=== PATIENT | male | born 1950 | race Caucasian/White ===

== ENCOUNTER 2021-02-12 18:21 | Observation (INO) | payer MEDICARE, SELFPAY ==
--- NOTE | ~2021-02-12 | MR_ITS ---
EXAMINATION: MR brain/brain stem wo/w con DATE: 02/13/2021 11:43 INDICATION: Aphasia. TECHNIQUE: Magnetic resonance imaging (MRI) of the brain and brainstem was performed without and with 15 mL MultiHance intravenous contrast. Sequences included sagittal and axial T1-weighted FSE, axial diffusion-weighted FS EPI, axial T2*-weighted GRE, axial T2-weighted FLAIR Propeller, and axial T2-we ighted Propeller. Postcontrast sequences included axial, sagittal, and coronal T1-weighted FSE. Appar ent diffusion coefficient (ADC) maps were created. COMPARISON: Head CT 02/12/2021 FINDINGS: There is an old lacunar infarct in the left basal ganglia. There are scattered areas of non specific increased T2-weighted signal intensity in the cerebral white matter, which is within normal limits for the patient's age. There is no intracranial hemorrhage, acute infarction, or abnormal intr acranial mass lesion. The ventricles are normal in size. There is mild mucosal thickening in the para nasal sinuses. The orbits are normal. The mastoid air cells are normal. IMPRESSION: 1. Old lacunar infarct in the left basal ganglia. Reviewed, dictated and finalized at location A.
--- NOTE | ~2021-02-12 | XR_ITS ---
EXAMINATION: XR chest 1V INDICATION: Memory loss TECHNIQUE: Portable AP chest at 1855 hours COMPARISON: 10/30/2010 FINDINGS: Airspace opacity is present in the right lower lung zone. There is no pleural effusion or p neumothorax. The cardiomediastinal silhouette is normal. IMPRESSION: 1. Airspace opacity of the right lower lung zone which may be infectious or inflammatory. Recommend f ollowup radiographs in 10-14 days after appropriate therapy to evaluate for improvement/resolution. Reviewed, dictated and finalized at location A. IMPRESSION: 1. Airspace opacity of the right lower lung zone which may be infectious or inf lammatory. Recommend followup radiographs in 10-14 days after appropriate thera py to evaluate for improvement/resolution.
--- NOTE | ~2021-02-12 | CT_ITS ---
EXAMINATION: CT chest high resolution [facility] EXAM DATE: 02/13/2021 12:16 INDICATION: Abnormal chest x-ray, right lung opacity. TECHNIQUE: Spiral CT of the chest without contrast. HRCT. Axial, coronal and sagittal images of the chest were reviewed. Coronal maximum intensity pixel images of chest reviewed. The dose-length prod uct (DLP) for this examination was 196.85 mGy-cm. The exposure was tailored according to patient siz e (auto mA exposure control), and iterative reconstruction (ASIR) was used as additional dose reducti on technique. Correlation is made to x-ray 02/12/2021. FINDINGS: Scattered lung calcifications, granulomas. Small amount of bibasilar atelectasis. No suspi cious opacities. Mild emphysema. There are no pleural or pericardial effusions. Tracheobronchial t ree is patent. There is no mediastinal, hilar or axillary lymphadenopathy. There is no pneumothor ax. Heart normal in size. There is mild coronary arterial calcification, arterial sclerosis. Ther e is small to moderate sliding gastroesophageal hiatal hernia. Large right renal lesions, imaged por tions consistent with cysts. There is thoracic spondylosis without osteoblastic or osteolytic lesion s identified. IMPRESSION: 1. Subsegmental atelectasis and post infectious residua. 2. Mild emphysema. 3. Small to moderate hiatal hernia. Reviewed, dictated and finalized at location A.
--- NOTE | ~2021-02-12 | US_ITS ---
EXAMINATION: US carotid duplex BI DATE: 02/13/2021 12:14 INDICATION: Aphasia. TECHNIQUE: Grayscale, color Doppler, and pulsed Doppler images of the cervical carotid arteries were obtained. The degree of vessel stenosis is placed in one of the following categories: normal, <50%, 5 0-69%, >=70% but less than near-occlusion, near-occlusion, or total occlusion. Note that percent sten osis relative to normal distal artery lumen diameter is indirectly measured from velocity measurement s as described by Titi, et al. Radiology 2003; 229:340-346. COMPARISON: None. FINDINGS: RIGHT: The right common carotid artery (CCA) peak systolic velocity (PSV) is 78 cm/s. The right internal car otid artery (ICA) PSV is 87 cm/s. The right ICA end-diastolic velocity (EDV) is 33 cm/s. The right IC A/CCA PSV ratio is 1.1. Grayscale and color Doppler images yield an estimate of <50% diameter reducti on from plaque in the ICA. There is antegrade flow in the right vertebral artery. LEFT: The left CCA PSV is 52 cm/s. The left ICA PSV is 82 cm/s. The left ICA EDV is 31 cm/s. The left ICA/C CA PSV ratio is 1.6. Grayscale and color Doppler images yield an estimate of <50% diameter reduction from plaque in the ICA. There is antegrade flow in the left vertebral artery. IMPRESSION: 1. <50% stenosis in the right internal carotid artery. 2. <50% stenosis in the left internal carotid artery. Reviewed, dictated and finalized at location A.
--- NOTE | ~2021-02-12 | CT_ITS ---
EXAMINATION: CT brain wo con INDICATION: Memory loss, history of prostate cancer COMPARISON: None TECHNIQUE: Standard unenhanced head CT. The dose-length product (DLP) was 605.33 mGy-cm. The mA was a djusted according to patient size. Iterative reconstruction technique was employed. FINDINGS: There is no acute intraparenchymal hemorrhage. No evidence of mass lesion. No evidence of a cute infarction. There are old lacunar infarcts of the bilateral basal ganglia. There is mild periven tricular and subcortical hypodensity probably related to small vessel ischemic disease. There is mild prominence of the sulci and ventricles related to cerebral atrophy. Intracranial calcified cerebral atherosclerosis is noted. There are no extra-axial collections. There is no mass effect or midline sh ift. The orbits and soft tissues are unremarkable. The visualized sinuses and mastoid air cells are well aerated. IMPRESSION: 1. No acute intracranial abnormality. 2. Age related findings. Reviewed, dictated and finalized at location A.
[2021-02-12 18:28] VITALS: BP 117/84; PULSE 92; RESP 17; TEMP 37.3; O2SAT 99
--- NOTE | 2021-02-12 18:31 | ECG_ITS ---
Measurements Intervals Casey Rate: 91 P: 28 VA: 149 QRS: -14 QRSD: 94 T: 55 QT: 324 QTc: 400 Interpretive Statements SINUS RHYTHM VENTRICULAR PREMATURE COMPLEXES BASELINE ARTIFACT- I, II, III, AVR, AVL, AVF, V1-V4 BORDERLINE ECG Electronically Signed On 02-12-2021 20:02:41 CDT by Tima Schwartz D.O.
[2021-02-12 18:45] LABS: Basophils Absolute Auto 0.1 K/mm3 (0.0-0.1); Basophils Percent Auto 0.5 % (0.2-1.2); Hematocrit 46.2 % (42.0-52.0); Hemoglobin 15.9 g/dL (14.0-18.0); Immature Granulocyte Absolute 0.02 K/mm3 (0.00-0.031); Immature Granulocyte Percent A 0.2 % (0-0.5); Lymphocytes Percent Auto 16.5 % (18.3-44.2); Mean Corpuscular HGB Conc 34.4 g/dl (32-36); Mean Corpuscular Hemoglobin 30.8 pg (26-34); Mean Corpuscular Volume 89.5 fl (80-100); Mean Platelet Volume 9.4 fl (7.4-10.4); Monocytes Percent Auto 10.3 % (2.6-8.5); Neutrophils Percent Auto 72.5 % (45.5-73.1); Platelet Count Result 290 k/mm3 (150-375); Red Blood Count 5.16 M/mm3 (4.6-6.20); Red Cell Distribution Width 13.1 % (11.5-14.5); White Blood Count 9.7 K/mm3 (4.5-10.0)
[2021-02-12 18:54] LABS: Anion Gap 8 mmol/L (8-16); Blood Urea Nitrogen 24 mg/dL (9-20); Calcium 9.4 mg/dL (8.4-10.2); Carbon Dioxide 25 mmol/L (22-30); Chloride 100 mmol/L (98-107); Estimated Glomerular Filt Rate > 60; Glucose 109 mg/dL (75-110); Potassium 4.3 mmol/L (3.4-5.0); Sodium 133 mmol/L (137-145)
[2021-02-12 18:55] LABS: INR 1.1; Prothrombin Time 14.7 Seconds (11.1-14.7)
[2021-02-12 18:56] LABS: Partial Thromboplastin Time 31.8 SECONDS (22.3-36.8)
[2021-02-12 19:06] LABS: Troponin I < 0.012 ng/mL (0.000-0.034)
--- NOTE | 2021-02-12 19:15 | ED.GENADULT ---
HPI - General Adult General Chief complaint: Neuro Symptoms/Deficit Stated complaint: difficulty talking/ R/O stroke Time Seen by Provider: 02/12/21 18:42 Source: RN notes reviewed History of Present Illness HPI narrative: Patient presents emergency department from home for aphasia. Per the patient's the patient both of them had a episode of nausea vomiting diarrhea yesterday. States the patient said most of the day and this morning when she woke she noted that he was having difficulty at times finding the word to say or pick the wrong word states that this is continued throughout the day. Patient denies having any unilateral numbness or tingling they deny him having facial droop or slurred speech per the she believes he was normal yesterday but states he did sleep a lot patient denies any fevers or chills chest pain shortness of breath abdominal pain nausea vomiting or any other symptoms Related Data Allergies Allergy/AdvReac Type Severity Reaction Status Date / Time No Known Drug Allergies Allergy Verified 02/12/21 19:17 Review of Systems Review of Systems: Narrative: Gen.: Denies fevers or chills Eyes: Denies eye pain or visual change ENT: Denies congestion Respiratory: Denies shortness of breath or cough CV: Denies chest pain or palpitations GI: Denies abdominal pain nausea, emesis or diarrhea denies burning, urgency, frequency or hematuria Musculoskeletal: Denies back pain or muscle pain Neuro: See HPI Skin: Denies rash Except as documented, all other systems reviewed and negative [facility] Past Medical History Medical History (Updated 02/12/21 @ 20:40 by Chu Chiang DO) Prostate cancer Social History Social History (Updated 02/12/21 @ 19:16 by Chu Chiang DO) Smoking status: Never smoker Exam Narrative: Exam Narrative: APPEARANCE: No acute distress, nontoxic, resting in bed HEENT: Normocephalic, atraumatic, OMM, EYES: PERRL, EOMI NECK: Supple, nontender, full range of motion without pain, no meningismus RESPIRATORY: No respiratory distress, clear to auscultation bilaterally with no rhonchi wheezing or rales CARDIOVASCULAR: RRR s murmur ABDOMINAL: Soft, nontender, nondistended MUSCULOSKELETAL: Moves all extremities. No clubbing, cyanosis or edema. NEURO: A and O ?3, following commands, slurred speech mild aphasia cranial nerves II through XII grossly intact,muscle strength 5 out of 5 bilateral upper and lower extremities SKIN:: Warm, dry. Normal Color PSYCHIATRIC: Normal affect/mood Course Course Emergency Course: Discussed with Dr. Tee presentation work-up request MRI and carotid ultrasound be obtained in the a.m. agrees with aspirin and will follow as a edi consultant Reviewed patient's chest x-ray patient has had no fever and no cough white count within normal limits doubt pneumonia at this time Discussed with Dr. Meredith presentation work-up agrees with admission at this time Discussed with patient and family results of workup and diagnosis. Discussed need for admission. Patient and family understand and agree to current treatment plan Vital Signs Vital signs: Vital Signs Temperature 99.1 F 02/12/21 18:28 Pulse Rate 92 02/12/21 18:28 Respiratory Rate 17 02/12/21 18:28 Blood Pressure 117/84 02/12/21 18:28 Pulse Oximetry 99 02/12/21 18:28 Temperature 99.1 F 02/12/21 18:28 Pulse Rate 92 02/12/21 18:28 Respiratory Rate 17 02/12/21 18:28 Blood Pressure 117/84 02/12/21 18:28 Pulse Oximetry 99 02/12/21 18:28 Medical Decision Making Vital Signs Vital Signs: Vital Signs Temperature 99.1 F 02/12/21 18:28 Pulse Rate 92 02/12/21 18:28 Respiratory Rate 17 02/12/21 18:28 Blood Pressure 117/84 02/12/21 18:28 Pulse Oximetry 99 02/12/21 18:28 Temperature 99.1 F 02/12/21 18:28 Pulse Rate 92 02/12/21 18:28 Respiratory Rate 17 02/12/21 18:28 Blood Pressure 117/84 02/12/21 18:28 Pulse Oximetry 99 02/12/21 18:28
[2021-02-12 19:27] LABS: Alanine Aminotransferase 18 U/L (4-50); Albumin Level 4.5 g/dL (3.5-5.1); Alkaline Phosphatase 59 U/L (38-126); Aspartate Amino Transferase 31 U/L (17-59); Bilirubin,Total 0.8 mg/dL (0.2-1.3); Lipase 38 U/L (23-300)
[2021-02-12 19:33] LABS: Add Urine Microscopic? YES; Appearance Urine Clear (Clear); Bilirubin Urine Negative (Negative); Blood Urine Negative (Negative); Color Urine Amber (Yellow); Glucose Urine UA Negative (Negative); Ketones Urine 1+ mg/dL (Negative); Leukocyte Esterase Ur Negative LEU/UL (Negative); Mucus Urine Heavy /lpf; Nitrate Urine Negative (Negative); Protein Urine 2+ mg/dL (Negative); RBC Urine 0-2 /hpf (0-2); Squamous Epithelial Cell Urine Rare /hpf (Few); WBC Urine 0-3 /hpf
[2021-02-12] MEDS: SODIUM CHLORIDE 0.9% IV 1,000 ML 999 ML IV CONT ×2 (19:33→19:34)
[2021-02-12 19:36] LABS: Specific Grav Ur 1.033 (1.001-1.035)
--- NOTE | 2021-02-12 19:55 | PC.NURSE ---
Per ERP PT. is only to receive one liter of fluids. RN stopped second liter of fluids.
[2021-02-12] MEDS: ASPIRIN 81 MG CHEWABLE TABLET 324 MG PO (20:47)
--- NOTE | 2021-02-12 21:39 | ADMGEN ---
This patient, Anthony Peguero, was admitted to Medical Room 241-. Patient/family oriented to hospital policies and general routines including ID bracelet, bed and alarms, visiting hours, pain management, procedures, bathroom and other care routines, personal items, smoking policy, room service/diet, and visiting hours. Information on how to activate the Rapid Response Team has been discussed. Patient/Family are encouraged to report perceived risks to care and to ask questions if they do not understand what they are told or what they should do.
[2021-02-12 21:42] VITALS: BP 137/77; PULSE 80; RESP 16; TEMP 37.1; O2SAT 95
[2021-02-12 21:43] VITALS: BMI 27.4
[2021-02-12 23:53] LABS: Troponin I < 0.012 ng/mL (0.000-0.034)
[2021-02-13] VITALS: PULSE 73
--- NOTE | 2021-02-13 | ECHO_ITS ---
Patient Info Name: Anthony Peguero Age: 71 years : 1950 Gender: Male Ht: 70 in Wt: 191 lbs BSA: 2.08 m2 HR: 71 bpm BP: 140 / 83 mmHg Heart Rhythm: Sinus Rhythm Technical Quality: Good Exam Date: 02/13/2021 10:41 AM Exam Location: [facility] Pulmonary Exam Room: 241 Patient Status: Inpatient Admit Date: 02/12/2021 Staff Ordering Physician: Kye Meredith MD Industrial Design Intern: Deirdre Mendez RDCS Attending Provider: Kye Meredith MD Exam Type: CA echo doppler color flow Study Info Indications - stroke like symptoms cva /tia Complete two-dimensional, color flow and Doppler transthoracic echocardiogram is performed with agitated saline. Contrast/Agitated Saline Contrast/Ag. Saline: Agitated Saline Amount: 20.00 ml Administered By: Phyllis House RN Existing IV Access: Yes IV Access Condition: patent with no signs of infiltration Summary 1. Left ventricular systolic function is normal, estimated at 65-70%. 2. No evidence of interatrial shunt with injection of agitated saline with or without Valsalva. 3. Left ventricular chamber dimension is normal. 4. There is mildly increased left ventricular wall thickness. 5. The left ventricular diastolic function is grade I diastolic dysfunction. 6. Right atrial chamber dimension is mildly enlarged. Left Ventricle Left ventricular systolic function is normal, estimated at 65-70%. Left ventricular chamber dimension is normal. There is mildly increased left ventricular wall thickness. The left ventricular diastolic function is grade I diastolic dysfunction. Right Ventricle Right ventricular chamber dimension is normal. Right ventricular systolic function is normal. Left Atria Left atrial chamber dimension is normal. Right Atria Right atrial chamber dimension is mildly enlarged. Atrial Septum No evidence of interatrial shunt with injection of agitated saline with or without Valsalva. Aortic Valve The aortic valve is trileaflet. There is no aortic valve stenosis. There is mild aortic valve regurgitation. There is mild aortic valve calcification. Pulmonic Valve The pulmonic valve is normal. There is mild pulmonic regurgitation. Mitral Valve The mitral valve has thickened leaflets. There is trace mitral valve regurgitation. The mitral valve annulus is mildly calcified. Tricuspid Valve The tricuspid valve leaflets are normal. There is trace tricuspid valve regurgitation. No pulmonary hypertension, estimated pulmonary arterial systolic pressure is 24 mmHg. Pericardium/Pleural The pericardium appears normal. There is trivial pericardial effusion. Inferior Vena Cava Normal inferior vena cava with >50% collapse upon inspiration consistent with normal right atrial pressure, 5 mmHg. Aorta The aortic root size at the sinus of Valsalva is normal. There is mild-moderate aortic atherosclerosis. Left Ventricular Outflow Tract Name Value Normal LVOT 2D LVOT Diameter 2.0 cm LVOT Doppler LVOT Peak Gradient 6 mmHg LVOT Mean Gradient
--- NOTE | 2021-02-13 01:40 | PM.IMHP ---
H&P: HPI History of Present Illness Date/Time: 02/13/21 01:40 Chief Complaint: speech difficulty Narrative: Patient presents emergency department from home for aphasia. The patient reports latelyn since past few days to be exact, he has been having difficulty with words and difficulty with memory. memory he thiinks has been an issues for some time now but has goten worsen. He reports the memory issue has been the same, and has nto gotten worse or any better since he has been here. he reports that he otherwise did not have any visual problems, weakness or arms or legs. he reports that recently, he was having some flu like illnesss. he also had some nausea, with no vomiting and has not been eating as much lately. he reports low grade temperature recently. he had also seen Dr. Gregg fierro for his prostate and had complained about his urine having burning sensation. he was given bactrim for a 10 days course, he only took it for 3 days and since nauseeated he has not taken then. he reports that he had prostate cancer and had prsotatectomy done. he was being followed by psa level and more recently his psa level had bumped up to 15, o fnote, it never went to zero from [facility] prostatectomy. he i splanned to have some treamtent for this but has not started yet. Review of Systems Review of Systems: Narrative: - CONSTITUTIONAL: Denies weight loss, reports some fever and chills. - HEENT: Denies changes in vision and hearing - RESPIRATORY: Denies SOB and cough. - CV: Denies palpitations and CP. - GI: Denies abdominal pain, nausea, vomiting and diarrhea. - : Denies dysuria and urinary frequency. - MSK: Denies myalgia and joint pain. - SKIN: Denies rash and pruritus. - NEUROLOGICAL: Denies headache and syncope. - PSYCHIATRIC: Denies recent changes in mood. Denies anxiety and depression. All systems reviewed & are unremarkable except as noted in HPI and below PMFSH Past Medical History Medical History (Updated 02/13/21 @ 02:50 by Kye Meredith MD) Prostate cancer Social History Social History (Updated 02/12/21 @ 19:16 by Chu Chiang DO) Smoking status: Never smoker Alcohol intake: current Drinks per week: 3 Substance use: never Substance use type: does not use Spiritual care concerns: No Meds Home Medications and Allergies Home Medications Medication Instructions Recorded Confirmed Type amlodipine 5 mg PO DAILY 02/12/21 02/12/21 History levothyroxine 50 mcg PO DAILY 02/12/21 02/12/21 History omeprazole 20 mg PO DAILY 02/12/21 02/12/21 History simvastatin 10 mg PO DAILY 02/12/21 02/12/21 History sulfamethoxazole-trimethoprim 800 tablet PO BID 02/12/21 02/12/21 History Allergies Allergy/AdvReac Type Severity Reaction Status Date / Time No Known Drug Allergies Allergy Verified 02/12/21 19:17 Vital Signs Vital Signs - 24 hr 02/12/21 18:28 02/12/21 21:42 02/13/21 00:00 Temperature 99.1 F 98.7 F Pulse Rate 92 80 73 Respiratory Rate 17 16 Blood Pressure 117/84 137/77 Pulse Oximetry 99 95 Exam Narrative: Exam Narrative: GENERAL: The patient is well developed, not in acute distress HEENT: Nonicteric sclerae, PERRLA, EOMI. Oropharynx clear. Moist mucous membranes. Conjunctivae appear well perfused. CHEST: Chest wall is nontender. HEART: Regular rate and rhythm without murmur, rubs, or gallops LUNGS: Clear to auscultation bilaterally. no respiratory distress ABDOMEN: Soft, positive bowel sounds, non-tender, no organomegaly. SKIN: No rash, no excessive bruising, petechiae, or purpura. NEUROLOGIC: Cranial nerves II-XII intact, alert and oriented x 3, no gross motor deficits, intermittent expressive aphasia noted on examination otherwise speech clear and comprehensible EXTREMITIES: no edema, cyanosis or clubbing H&P: Results Labs Labs: Short CBC 02/12/21 Range/Units 18:33 WBC 9.7 (4.5-10.0) K/mm3 Hgb 15.9 (14.0-18.0) g/dL Hct 46.2 (42.0-52.0) % Plt Count
[2021-02-13 02:45] LABS: Troponin I < 0.012 ng/mL (0.000-0.034)
[2021-02-13 04:00] VITALS: PULSE 73
[2021-02-13 05:21] VITALS: BP 140/83; PULSE 71; RESP 18; TEMP 36.6; O2SAT 98
[2021-02-13] MEDS: LEVOTHYROXINE SODIUM 50 MCG TABLET PO (05:33)
[2021-02-13] MEDS: ASPIRIN 81 MG ENTERIC TABLET PO (05:34)
[2021-02-13 05:41] LABS: Basophils Absolute Auto 0.1 K/mm3 (0.0-0.1); Basophils Percent Auto 0.6 % (0.2-1.2); Eosinophils Percent Auto 0.1 % (0-4.4); Hematocrit 42.5 % (42.0-52.0); Hemoglobin 14.7 g/dL (14.0-18.0); Immature Granulocyte Absolute 0.03 K/mm3 (0.00-0.031); Immature Granulocyte Percent A 0.3 % (0-0.5); Lymphocytes Absolute Auto 2.08 K/mm3 (0.9-3.2); Lymphocytes Percent Auto 22.3 % (18.3-44.2); Mean Corpuscular HGB Conc 34.6 g/dl (32-36); Mean Corpuscular Hemoglobin 30.8 pg (26-34); Mean Corpuscular Volume 89.1 fl (80-100); Mean Platelet Volume 9.5 fl (7.4-10.4); Monocytes Absolute Auto 1.1 K/mm3 (0.1-0.6); Monocytes Percent Auto 11.8 % (2.6-8.5); Neutrophils Percent Auto 64.9 % (45.5-73.1); Platelet Count Result 245 k/mm3 (150-375); Red Blood Count 4.77 M/mm3 (4.6-6.20); White Blood Count 9.3 K/mm3 (4.5-10.0)
[2021-02-13 05:59] LABS: Anion Gap 6 mmol/L (8-16); Blood Urea Nitrogen 20 mg/dL (9-20); Calcium 8.7 mg/dL (8.4-10.2); Carbon Dioxide 23 mmol/L (22-30); Chloride 103 mmol/L (98-107); Cholesterol 158 mg/dL (0-200); Estimated CRCL calculation 69 ml/min; Estimated Glomerular Filt Rate > 60; Glucose 103 mg/dL (75-110); HDL Direct 43 mg/dL; Potassium 3.9 mmol/L (3.4-5.0); Sodium 132 mmol/L (137-145); Triglycerides 83 mg/dL (<150)
[2021-02-13 06:04] LABS: LDL Cholesterol Direct 93 mg/dL
[2021-02-13 08:00] VITALS: PULSE 69
--- NOTE | 2021-02-13 10:34 | WPDNEURCNPN ---
Assessment and Plan Assessment and plan (1) Aphasia: Code(s): R47.01 - Aphasia Status: Acute (2) Memory dysfunction: Code(s): R41.3 - Other amnesia Status: Acute Additional Plan admitted with speech difficulties in addition to the concerns about memory evaluation is being carried out further recommendation made accordingly at present patient is going through the echocardiogram Consult date: 02/13/21 Time Seen: 10:30 HPI: Anthony Peguero is a 71 year old male Admitted to the hospital for the complaints of dysphagia of several days duration along with the 5 memory dysfunction which she has been experiencing for a while he gave no history or of associated visual difficulties weakness and numbness of 1 side or other side in upper and lower extremities. Is being followed by Dr. cruz for his prostatic dysfunction and has been taking Bactrim the last the last 3 days and unfortunately he became nauseated and he stopped the medication. Undergone prostatic cancer treatment including prostatectomy and being followed by a PSA level most recent level was 15. By history he is a never smoker drinks 3 drinks per week never substance abuser evaluation up until now include the routine CBC which is normal, routine chemistry which is also again normal except borderline sodium of 132 and UA is a 2+ protein urea no leukocyte CT scan has been done which is negative [facility] Past Medical History Medical History Prostate cancer Social History Social History Smoking status: Never smoker Alcohol intake: current Drinks per week: 3 Substance use: never Substance use type: does not use Spiritual care concerns: No Meds Home Medications and Allergies Home Medications Medication Instructions Recorded Confirmed Type amlodipine 5 mg PO DAILY 02/12/21 02/12/21 History levothyroxine 50 mcg PO DAILY 02/12/21 02/12/21 History omeprazole 20 mg PO DAILY 02/12/21 02/12/21 History simvastatin 10 mg PO DAILY 02/12/21 02/12/21 History sulfamethoxazole-trimethoprim 800 tablet PO BID 02/12/21 02/12/21 History Allergies Allergy/AdvReac Type Severity Reaction Status Date / Time No Known Drug Allergies Allergy Verified 02/12/21 19:17 Vital Signs Vital Signs - 24 hr 02/12/21 18:28 02/12/21 21:42 02/13/21 00:00 Temperature 37.3 C 37.1 C Pulse Rate 92 80 73 Respiratory Rate 17 16 Blood Pressure 117/84 137/77 Pulse Oximetry 99 95 02/13/21 04:00 02/13/21 05:21 Temperature 36.6 C Pulse Rate 73 71 Respiratory Rate 18 Blood Pressure 140/83 Pulse Oximetry 98 Exam Const: General: cooperative, comfortable, no acute distress, alert and awake Nutritional Appearance: average body habitus and well nourished Orientation/consciousness: oriented to person, oriented to place and oriented to time Limitations: no limitations HENMT: Head: normal to inspection Ears: hearing grossly normal bilaterally General nose exam: Normal external nose present Face and sinus: normal facial exam Mouth: Yes Normal oral and palatal mucosa present Eyes: General: appearance normal, both eyes and all related structures Visual Sultana: normal visual sultana by confrontation Alignment and Position: alignment normal Periorbital: periorbital findings normal Eyelids: eyelids normal Conjunctivae: conjunctivae normal Sclera: sclerae normal Cornea: corneas normal Pupils: Equal, round and reactive pupils present Neck: Neck: full ROM Resp: Effort & Inspection: able to speak in complete sentences Auscultation: clear to auscultation bilaterally Cardio: Rate: regular rate Rhythm: regular rhythm Skin: General skin exam: no rashes or lesions noted Neuro: General: oriented to person, oriented to place, oriented to time, patient oriented x3 and moves all extremities Cranial nerves: Yes CN's II-XII intact bilaterally Cognition (Neuro):
[2021-02-13] MEDS: SIMVASTATIN 10 MG TABLET PO (12:19)
[2021-02-13] MEDS: amLODIPine BESYLATE 5 MG TABLET PO (12:19)
[2021-02-13] MEDS: ENOXAPARIN 40 MG/0.4 ML SYRINGE SUB-Q (12:19)
[2021-02-13] MEDS: PANTOPRAZOLE 40 MG TABLET PO (12:19)
[2021-02-13 14:00] VITALS: BP 130/77; PULSE 69; RESP 18; TEMP 37.2; O2SAT 99
--- NOTE | 2021-02-13 14:56 | PM.DS ---
DS: Admitting Diagnosis Admitting Diagnosis Admitting Diagnosis: Aphasia DS: Discharge Diagnosis Discharge Diagnosis (1) Aphasia: Code(s): R47.01 - Aphasia Status: Acute Assessment and Plan: Patient reports slurred speech and issues with memory or placing words together in a sentence Brain MRI shows old infart Carotid Dopplers: >50% stenosed bilaterally 81mg aspirin Plavix for 4 weeks Diet advance as tolerated. (2) Prostate cancer: Code(s): C61 - Malignant neoplasm of prostate Status: Acute (3) Lesion of right lung: Code(s): R91.1 - Solitary pulmonary nodule Status: Acute (4) H/O prostatectomy: Code(s): Z90.79 - Acquired absence of other genital organ(s) Status: Acute Assessment and Plan: Follow instructions per Dr. Escobedo (5) Hypertension: Qualifiers: Hypertension type: essential hypertension Qualified Code(s): I10 - Essential (primary) hypertension Code(s): I10 - Essential (primary) hypertension Status: Acute Assessment and Plan: Blood pressure 140/83 Continue Home amlodipine 5mg PO daily (6) Hyperlipidemia: Qualifiers: Hyperlipidemia type: mixed hyperlipidemia Qualified Code(s): E78.2 - Mixed hyperlipidemia Code(s): E78.5 - Hyperlipidemia, unspecified Status: Acute Assessment and Plan: Change the simvastatin 10mg PO daily to atorvastatin 40mg PO daily (7) Hypothyroidism: Qualifiers: Hypothyroidism type: acquired Qualified Code(s): E03.9 - Hypothyroidism, unspecified Code(s): E03.9 - Hypothyroidism, unspecified Status: Acute Assessment and Plan: Levothyroxine 50mcg Po daily DS: Summary Hospital Course Hospital Course: patient's 71-year-old male with a past medical history of hypertension, hyperlipidemia, and prostate cancer with a prostatectomy who presented to the ED with complaints of aphasia, slurred speech, and memory loss. Patient is able to talk in full sentences and states that he is feeling 100% better. Patient had carotid ultrasound, brain MRI which were both resulted in negative. The patient denies chest pain, shortness of breath, abdominal pain, nausea, vomiting, numbness and tingling, diarrhea, constipation, and headache. Explained to patient about the addition of Plavix to his med regimen and changing his simvastatin to atorvastatin patient agreed and verbalized understanding of plan of care all questions were answered Status at Discharge Functional status at discharge: independent ambulation Overall status at discharge: patient is back to baseline Time Spent with Patient Time attestation: Total time spent providing and/or coordinating discharge services: Results review, chart review, and patient conversation Time spent: Greater than 30 minutes Exam Const: General: comfortable and no acute distress Limitations: no limitations HENMT: Ears: TM's normal bilaterally Eyes: General: appearance normal, both eyes and all related structures Pupils: Equal, round and reactive pupils present EOM: EOMs intact bilaterally Neck: Neck: supple and no JVD Thyroid: thyroid normal Resp: Effort & Inspection: normal respiratory effort Auscultation: clear to auscultation bilaterally Cardio: Rate: regular rate Rhythm: regular rhythm GI: Inspection: non-distended GI Palp: Yes Soft to palpation and No Tenderness to palpation present (GI) Percussion: Yes normal to percussion Auscultation: normal bowel sounds Skin: General skin exam: normal color and no rashes or lesions noted Neuro: General: gait normal Motor exam (neuro): 5/5 motor strength present throughout and Normal motor muscle tone present throughout Sensory Exam: normal sensation Extrem: General: normal to inspection and normal exam except as noted Right upper extremity: normal to inspection, full ROM and normal capillary refill Le
[2021-02-13 15:58] VITALS: O2SAT 97
== END 2021-02-13 16:05 | disposition home or self-care (01) ==
LOC: ANHED 20:40 → ANH2MED 02-13 00:44
PROVIDERS: Psychiatry & Neurology Neurology; Admitting Provider Internal Medicine; Emergency Provider Emergency Medicine; Visit Provider Nurse Practitioner
DX: R47.01 Aphasia (principal); R41.3 Other amnesia; R91.1 Solitary pulmonary nodule; I65.23 Occlusion and stenosis of bilateral carotid arteries; R97.21 Rising PSA following treatment for malignant neoplasm of prostate; I10 Essential (primary) hypertension; E78.5 Hyperlipidemia, unspecified; E03.9 Hypothyroidism, unspecified; Z85.46 Personal history of malignant neoplasm of prostate; Z90.79 Acquired absence of other genital organ(s)
CPT/HCPCS: 36415; 70450; 70553; 71045; 71250; 80048; 80061; 80076; 81001; 82607; 83690; 84443; 84484; 85025; 85610; 85730; 93005; 93306; 93880; 96360; 96372; 96375; 99285; A9270; A9577; G0378; J1650; J7030

== ENCOUNTER 2022-04-03 16:24 | Outpatient (CLI) | payer MEDICARE, SELFPAY ==
--- NOTE | ~2022-04-03 | MR_ITS ---
EXAMINATION: MR cervical spine wo/w con DATE: 04/03/2022 17:30 INDICATION: Protrude cervical disc presenting with several months of neck pain and some numbness in t he hands. TECHNIQUE: Magnetic resonance imaging (MRI) of the cervical spine was performed without and with fall patellar delayed start abdominal abnormality or strictures demonstrated. Parkinson's and fissuring a nd heterogeneous decreased, LAST OR DICTATION mL Multihance intravenous contrast. Sequences included sagittal T2-weighted FSE, sagittal T2-weighted FS FSE, sagittal T1-weighted FSE, axial MERGE and axia l T2-weighted FSE. COMPARISON: None FINDINGS: 1 mm anterolisthesis C7 on T1. 2 mm anterolisthesis of T1 on T2. Vertebral body heights are normal. Bone marrow signal intensity is normal. Moderate disc height loss at C6-C7 and mild disc height loss at C5-C6. Cord signal intensity is normal. No abnormally enhancing lesions identified. The following disc levels are specifically discussed: C2-C3: The disc does not extend beyond the endplate margin. There is no uncovertebral joint osteoarth ritis. There is mild left and severe right facet joint osteoarthritis. There is mild to moderate righ t neural foraminal stenosis. There is no central canal stenosis. C3-C4: Disc is mildly bulging. There is multiple right and moderate left uncovertebral joint osteoart hritis. There is mild right and severe left facet joint osteoarthritis. There is mild right and moder ate left neural foraminal stenosis. There is mild central canal stenosis with mild indention of the v entral surface of the cord. C4-C5: Disc is mildly bulging. There is mild right and moderate left uncovertebral joint osteoarthrit is. There is mild to moderate right and severe left facet joint osteoarthritis. There is mild right a nd moderate left neural foraminal stenosis. There is mild central canal stenosis. C5-C6: Disc is bulging. There is moderate bilateral uncovertebral joint osteoarthritis. There is mode rate left and moderate to severe right facet joint osteoarthritis. There is mild left and moderate ri ght neural foraminal stenosis. There is mild central canal stenosis with mild indentation of the vent ral surface of the cord. C6-C7: Disc is bulging. There is moderate right and severe left uncovertebral joint osteoarthritis. T here is mild right and moderate left facet joint osteoarthritis. There is moderate left and mild to m oderate right neural foraminal stenosis. There is mild central canal stenosis with mild indentation o f the ventral surface of the cord. C7-T1: The disc does not extend beyond the more posterior T1 endplate margin. There is mild bilateral uncovertebral joint osteoarthritis. There is mild to moderate right and severe left facet joint oste oarthritis. There is mild left neural foraminal stenosis. There is no central canal stenosis. T1-T2: The disc does not extend beyond the more posterior endplate margin of T2. There is moderate ri ght and severe left facet osteoarthritis. There is mild bilateral neural foraminal stenosis. There is no central canal stenosis. IMPRESSION: 1. Moderate cervical spondylosis. Reviewed, dictated and finalized at location A.
[2022-04-03 17:11] LABS: Estimated Glomerular Filt Rate > 60
== END 2022-04-03 16:25 | disposition home or self-care (01) ==
PROVIDERS: PCP Internal Medicine; Visit Provider Psychiatry & Neurology Neurology
DX: M50.20 Other cervical disc displacement, unspecified cervical region (principal); M47.812 Spondylosis without myelopathy or radiculopathy, cervical region
CPT/HCPCS: 72156; A9577

== ENCOUNTER 2022-06-19 13:24 | Emergency (ER) | payer MEDICARE, SELFPAY ==
--- NOTE | ~2022-06-19 | US_ITS ---
US venous doppler LE RT DATE: 06/19/2022 14:37 INDICATION: Right calf pain TECHNIQUE: Real-time and color flow imaging and Doppler analysis of the veins of the right lower extr emity COMPARISON: None FINDINGS: The right greater saphenous vein is patent. There is spontaneous and phasic flow and normal augmentation and color flow signal and normal compression of the deep veins of the right lower extre mity. IMPRESSION: No evidence of deep venous thrombosis of right leg Reviewed, dictated and finalized at [facility]. Reviewed, dictated and finalized at location B.
[2022-06-19 14:18] VITALS: BP 161/86; PULSE 75; RESP 12; TEMP 36.4; O2SAT 98
--- NOTE | 2022-06-19 15:46 | ED.GENADULT ---
HPI - General Adult General Chief complaint: Extremity Problem,Nontraumatic Stated complaint: right calf pain Time Seen by Provider: 06/19/22 15:08 History of Present Illness HPI narrative: Patient is a 72-year-old male who presents ER with right calf pain. No known injury but notes its been worse after he has a day of labor. No swelling. No chest pain or shortness of breath or hemoptysis. No history of DVT. Related Data Home Medications Medication Instructions Recorded Confirmed cholecalciferol (vitamin D3) 25 25 mcg PO DAILY 03/26/22 mcg (1,000 unit) capsule omega 2-otz-zdt-fish oil 60 mg-90 1 cap PO BID 03/26/22 mg-500 mg capsule (Fish Oil) Allergies Allergy/AdvReac Type Severity Reaction Status Date / Time No Known Drug Allergies Allergy Unknown Verified 05/07/22 14:04 Review of Systems Review of Systems: All systems reviewed & are unremarkable except as noted in HPI and below Constitutional: Constitutional: Denies chills and Denies fever(s) Cardiovascular: Cardiovascular: Denies chest pain, Denies rapid heart rate and Denies radiating jaw, neck or arm pain Respiratory: Respiratory: Denies cough and Denies dyspnea Musculoskeletal: Comments: Right calf pain PMFSH Past Medical History Medical History Blurred vision Headache Prostate cancer Surgical History Surgical History H/O cataract extraction Social History Social History Smoking status: Never smoker Alcohol intake: current Drinks per week: 3 Substance use: never Substance use type: does not use Spiritual care concerns: No Exam Narrative: GENERAL: Well-appearing, well-nourished, and in no acute distress. HEAD: Normocephalic, atraumatic. EXTREMITIES: Normal range of motion. No edema. Mild point tenderness to the mid posterior aspect of the right calf. No bruising or redness. SKIN: Warm, dry, no rash. NEURO: Alert and oriented x3. PSYCH: Normal mood and affect. Course Course Emergency Course: Patient informed of results. He will take home Aleve twice a day for the next week. Recommend follow-up with PCP. Vital Signs Vital signs: Vital Signs Temperature 97.6 F 06/19/22 14:18 Pulse Rate 75 06/19/22 14:18 Respiratory Rate 12 06/19/22 14:18 Blood Pressure 161/86 H 06/19/22 14:18 Pulse Oximetry 98 06/19/22 14:18 Oxygen Delivery Room Air 06/19/22 14:18 Temperature 97.6 F 06/19/22 14:18 Pulse Rate 75 06/19/22 14:18 Respiratory Rate 12 06/19/22 14:18 Blood Pressure 161/86 H 06/19/22 14:18 Pulse Oximetry 98 06/19/22 14:18 Oxygen Delivery Room Air 06/19/22 14:18 Medical Decision Making Vital Signs Vital Signs: Vital Signs Temperature 97.6 F 06/19/22 14:18 Pulse Rate 75 06/19/22 14:18 Respiratory Rate 12 06/19/22 14:18 Blood Pressure 161/86 H 06/19/22 14:18 Pulse Oximetry 98 06/19/22 14:18 Oxygen Delivery Room Air 06/19/22 14:18 Temperature 97.6 F 06/19/22 14:18 Pulse Rate 75 06/19/22 14:18 Respiratory Rate 12 06/19/22 14:18 Blood Pressure 161/86 H 06/19/22 14:18 Pulse Oximetry 98 06/19/22 14:18 Oxygen Delivery Room Air 06/19/22 14:18 Imaging Data Radiologist's impression: ITS Impressions Venous Doppler Study 06/19/22 14:42 IMPRESSION: No evidence of deep venous thrombosis of right leg Discharge Plan Discharge Clinical Impression: Strain of calf muscle Patient Disposition: Home, Self-Care Condition: Stable Instructions: Muscle Strain (ED) Additional Instructions: Return the ER if you have chest pain or shortness of breath, you lose consciousness, you cannot keep down food or water, you have additional concerns. Prescriptions: No Action omega 4-pvv-dyz-fish oil [Fish Oil] 60-90-500 mg capsule 1 cap PO BID choleca
== END 2022-06-19 15:57 | disposition home or self-care (01) ==
PROVIDERS: Emergency Provider Emergency Medicine; PCP Physician Assistant Medical
DX: S86.911A Strain of unspecified muscle(s) and tendon(s) at lower leg level, right leg, initial encounter (principal); Z85.46 Personal history of malignant neoplasm of prostate; Z98.49 Cataract extraction status, unspecified eye; X58.XXXA Exposure to other specified factors, initial encounter
CPT/HCPCS: 93971; 99284

== ENCOUNTER 2022-10-04 09:46 | Emergency (ER) | payer MEDICARE, SELFPAY ==
--- NOTE | ~2022-10-04 | XR_ITS ---
XR knee RT 3V 10/04/2022 10:29 Indication: Swelling and anterior knee pain. Procedure: 3 views of the right knee Comparison: No prior studies for comparison. Findings: There is mild patellofemoral compartment osteoarthritis. There is a moderate joint effusion . No acute fracture or traumatic malalignment. No foreign bodies. Impression: 1: Moderate joint effusion. Reviewed, dictated and finalized at location A. ING OFFICER Impression: 1: Moderate joint effusion.
[2022-10-04 09:50] VITALS: BP 146/98; PULSE 79; RESP 18; TEMP 36.7; O2SAT 99
--- NOTE | 2022-10-04 10:09 | ED.EXTPRO ---
HPI - Extremity Problem General Chief complaint: Extremity Problem,Nontraumatic Stated complaint: R knee pain Time Seen by Provider: 10/04/22 09:57 History of Present Illness HPI Narrative: Patient is a 72-year-old healthy male here for evaluation of right knee pain and swelling over the past day. Patient states yesterday he was working out in his yard and garden all day on his knees. He started to notice some pain and swelling in his right superior knee as the day went on. He attempted Tylenol with transient relief of his symptoms states that the pain got worse and he was having trouble bearing weight on the leg. Swelling has gone down today after taking a shower and using compression. Denies numbness, tingling or weakness in the leg. Related Data Home Medications Medication Instructions Recorded Confirmed cholecalciferol (vitamin D3) 25 25 mcg PO DAILY 03/26/22 mcg (1,000 unit) capsule omega 3-loq-vfm-fish oil 60 mg-90 1 cap PO BID 03/26/22 mg-500 mg capsule (Fish Oil) Allergies Allergy/AdvReac Type Severity Reaction Status Date / Time No Known Drug Allergies Allergy Unknown Verified 05/07/22 14:04 Review of Systems Review of Systems: Gen.: Denies fevers or chills Eyes: Denies eye pain or visual change ENT: Denies congestion Respiratory: Denies shortness of breath or cough CV: Denies chest pain or palpitations GI: Denies abdominal pain nausea, emesis or diarrhea denies burning, urgency, frequency or hematuria Musculoskeletal: Reports right knee pain and swelling. Denies back pain or muscle pain Neuro: Denies numbness, tingling, weakness or focal weakness Skin: Denies rash Except as documented, all other systems reviewed and negative [facility] Past Medical History Medical History Blurred vision Headache Prostate cancer Surgical History Surgical History H/O cataract extraction Social History Social History Smoking status: Never smoker Alcohol intake: current Drinks per week: 3 Substance use: never Substance use type: does not use Spiritual care concerns: No Exam Narrative: APPEARANCE: Well appearing, no pain in distress, well-nourished. Head: Normocephalic and atraumatic. EYES: PERRLA/EOMI, conjunctivae clear NOSE: No nasal drainage EARS: External ear normal in appearance THROAT: Oropharynx is clear. Mucous membranes are moist. NECK: Supple. No adenopathy, no masses. RESPIRATORY: Airway patent, respirations nonlabored. Clear to auscultation bilaterally, no rales, rhonchi, wheezing. CARDIOVASCULAR: 2+ DP and PT pulses bilaterally. Regular rate and rhythm without murmurs, rubs, or gallops. ABDOMINAL: Normoactive bowel sounds. Soft, nontender, nondistended. No rebound tenderness or guarding. MUSCULOSKELETAL: Right knee has palpable ballottement to the superior aspect, no warmth or overlying redness. Patient is able to actively flex the knee to about 20 degrees before he starts to have pain. No tenderness to palpation along insertion of quadriceps. NEURO: Normal speech. No focal neurologic deficits. SKIN: Skin is warm and dry. No rashes. PSYCHIATRIC: Normal affect/mood.. Course Vital Signs Vital signs: Vital Signs Temperature 98.1 F 10/04/22 09:50 Pulse Rate 79 10/04/22 09:50 Respiratory Rate 18 10/04/22 09:50 Blood Pressure 146/98 H 10/04/22 09:50 Pulse Oximetry 99 10/04/22 09:50 Oxygen Delivery Room Air 10/04/22 09:50 Temperature 98.1 F 10/04/22 09:50 Pulse Rate 79 10/04/22 09:50 Respiratory Rate 18 10/04/22 09:50 Blood Pressure 146/98 H 10/04/22 09:50 Pulse Oximetry 99 10/04/22 09:50 Oxygen Delivery Room Air 10/04/22 09:50 MDM - Extremity (Nontraumatic) MDM Narrative Medical decision making narrative: 72-year-old male here for evaluation of right
[2022-10-04] MEDS: MELOXICAM 7.5 MG TABLET PO (10:41)
== END 2022-10-04 11:30 | disposition home or self-care (01) ==
PROVIDERS: Emergency Provider Physician Assistant; PCP Physician Assistant Medical
DX: M70.41 Prepatellar bursitis, right knee (principal); Z85.46 Personal history of malignant neoplasm of prostate; Z98.49 Cataract extraction status, unspecified eye
CPT/HCPCS: 73562; 99283; A9270

== ENCOUNTER 2025-03-16 10:59 | Outpatient (CLI) | payer MEDICARE, SELFPAY ==
--- NOTE | ~2025-03-16 | PE_ITS ---
EXAMINATION: PET_PETPSMAST_PT DATE: 03/16/2025 13:46 INDICATION: Prostate cancer TECHNIQUE: 5.346 mCi of Illucix Ga-68([id number]) was administered i.v. Low dose computed adele graphy (CT) images were acquired from the base of the brain to the base of the brain to the proximal thighs for attenuation correction and anatomic localization. Positron emission tomography (PET) image s were acquired in the same distribution beginning 86 minutes after injection. Images including fused PET/CT images were reconstructed in axial, coronal, and sagittal planes. Automated exposure control technique was employed. The dose-length product was 1257.85mGy-cm. COMPARISON: None FINDINGS: Head/neck: Typical pattern of symmetric physiologic increased activity in the lacrimal, parotid and submandibula r glands as well as along the mucosa of the nasal and oral cavities, pharynx and hypopharynx. No path ologically enlarged cervical lymphadenopathy or suspicious foci of increased uptake in the visualized head or neck. Chest: Mild dependent atelectasis in both lungs. Small calcified nodule in the right middle lobe consistent with old granulomatous disease. No suspicious pulmonary nodules, pneumonia or pleural effusion. Heart size is normal. Atherosclerotic coronary artery calcifications. No pericardial effusion. Fusiform as cending thoracic aortic aneurysm measuring up to 4.5 cm. No pathologically enlarged or PSMA avid thor acic lymphadenopathy. Abdomen/pelvis/proximal thighs: Physiologic renal accumulation and excretion of activity in the kidneys, bladder and along portions o f ureters. Status post prostatectomy. No Photopenic defects associated with a couple large exophytic right renal cysts measuring 8 cm the upper pole and 10.5 cm at the lower pole. Normal degree and slig htly heterogenous pattern of increased uptake throughout the liver and spleen without radiologic kelly elate or dominant PSMA avid lesion. The gallbladder, pancreas and bilateral adrenal glands are normal . Moderate uptake scattered throughout the bowels with typical duodenal and proximal jejunal predomin ance and without radiologic correlate, also likely physiologic. Moderate diverticulosis along the rodolfo cending and sigmoid colon without adjacent from trace stranding to suggest diverticulitis. Normal marielos endix. Postoperative change of prior umbilical hernia mesh repair with 5 x 3 x 1 cm fluid attenuation likely seroma situated between the mass and the anterior abdominal wall. Minimal amount of ascites i n the deep pelvis. No other abnormal foci of increased uptake or pathologically enlarged lymphadenopa thy in the abdomen, pelvis or proximal thighs. Musculoskeletal: Severe spondylosis of the lower cervical spine and at the lumbosacral junction with mild to moderate intervening thoracic and lumbar spondylosis. No suspicious lytic, blastic or abnormally PSMA avid bon e lesions. IMPRESSION: 1. No lesions suspicious for metastatic disease. 2. Status post prostatectomy. No evident enlarging soft tissue masses at the prostatectomy bed to sug gest recurrent disease. Assessment for PSMA activity in this region is however limited by excreted ur ine activity at the prostatectomy bed. Reviewed, dictated and finalized at location B. IMPRESSION: 1. No lesions suspicious for metastatic disease. 2. Status post prostatectomy. No evident enlarging soft tissue masses at the pr ostatectomy bed to suggest recurrent disease. Assessment for PSMA activity in t his region is however limited by excreted urine activity at the prostatectomy b ed.
== END 2025-03-16 11:00 | disposition home or self-care (01) ==
PROVIDERS: PCP Physician Assistant Medical; Visit Provider Urology
DX: C61 Malignant neoplasm of prostate (principal); Z90.79 Acquired absence of other genital organ(s)
CPT/HCPCS: 78815; A9596

== ENCOUNTER 2025-04-15 09:30 | Outpatient (CLI) | payer MEDICARE, SELFPAY ==
--- NOTE | ~2025-04-15 | MR_ITS ---
EXAMINATION: MR pelvis wo/w con DATE: 04/15/2025 11:08 INDICATION: Prostate cancer TECHNIQUE: Magnetic resonance imaging (MRI) of the pelvis was performed without and with 19 mL Multih ance intravenous contrast. [place]field sequences of the pelvis included axial and coronal T2-weighted S S FSE, axial, sagittal and coronal 2D FIESTA, axial 2D FIESTA FS, axial SSFSE-IR SULMA, axial dual-echo T1-weighted FSPGR, axial and coronal T1 weighted LAVA, 3D axial T2 Cube, axial diffusion-weighted SE with apparent diffusion coefficient (ADC) maps. Postcontrast sequences included a time course axial T1-weighted LAVA and sagittal and coronal T1-weighted LAVA. COMPARISON: [facility] PET/CT dated 03/16/2025 FINDINGS: Status post prostatectomy. There is asymmetric relatively thickened soft tissue at the posterior aspe ct of the base of the bladder near the prostatectomy bed relative to the adjacent anterior wall. On s agittal images reconstructed from the 3-D axial T2 CUBE sequence this measures approximately 1.6 cm c raniocaudally and 1.1 cm in AP thickness with a smooth mucosal surface. This soft tissue also demonst rates enhancement on the post contrast imaging. No foci of susceptibility artifact likely related to the prior surgery. Differential would include residual prostatic tissue, scarring or residual/recurre nt malignancy either extending within or immediately underlying the wall of the bladder. There appear s to be residual thin intact fat plane between this region of soft tissue density in the more posteri or anterior wall of the rectum. Bladder is otherwise unremarkable. There is a minimal amount of ascit es in the deep pelvis. Prominent diverticulosis along the visualized sigmoid colon without adjacent f rom trace stranding to suggest diverticulitis. No bowel obstruction. At least 9.6 cm partially visual ized likely renal cyst in the right abdomen. No pathologically enlarged pelvic or inguinal lymphadeno skyler. Lumbar spondylosis with severe disc height loss at L5-S1, otherwise mild. Bone marrow signal i s normal throughout. IMPRESSION: 1. Status post prostatectomy with small region of asymmetric soft tissue density appearing lenticular and measuring 1.6 x 1.1 cm at the posterior margin of the prostatectomy bed/base of the bladder on s agittal images which could be due to scarring, residual prostatic tissue or residual/locally recurren t disease. No other lesions suspicious for metastatic disease. Reviewed, dictated and finalized at location A. IMPRESSION: 1. Status post prostatectomy with small region of asymmetric soft tissue densit y appearing lenticular and measuring 1.6 x 1.1 cm at the posterior margin of th e prostatectomy bed/base of the bladder on sagittal images which could be due t o scarring, residual prostatic tissue or residual/locally recurrent disease. No other lesions suspicious for metastatic disease.
--- OUTSIDE RECORDS SUMMARY | 2025-04-15 09:35 | XMS_ITS | Encounter Summary ---
Author Organization [facility] Address [facility] [place] [address] Care Team Providers Care Licensing Court Magistrate Name Role Phone Flip Hurley MD Primary Care Provider [phone] Encounter Details Date Type Department Care Team (Late st Contact Info) Description 01/27/2013 Abstract [facility] CONVERSION [id number] [place] [address] , Generic Conversion, Social History Tobacco Use Types Packs/Day Years Used Date Smoking Tobacco: Never Assessed Sex and Gender Information Value Date Recorded Sex Assigned at Not on file Legal Sex Male 5:10 PM CDT Gender Identity Not on file Sexual Orientation Not on file documented as of this encounter Plan of Treatment Not on file documented as of this encounter Visit Diagnoses Not on filedocumented in this encounter Care Teams Licensing Court Magistrate Relationship Specialty Start Date End Date Flip Hurley MD PCP - General INTERNAL MEDICINE 07/29/18 documented as of this encounter
--- OUTSIDE RECORDS SUMMARY | 2025-04-15 09:35 | XMS_ITS | Encounter Summary ---
Author Organization [facility] Address [facility] [place] [address] Care Team Providers Care Digital Advisor Name Role Phone Flip Hurley MD Primary Care Provider [phone] Encounter Details Date Type Department Care Team (Late st Contact Info) Description 12/12/2018 [employer] WORK[employer] ONLY [facility] Priority Care - [facility] [address] [address] [place] [address] Scanned, Documents Social History Tobacco Use Types Packs/Day Years Used Date Smoking Tobacco: Never Alcohol Use Standard Drinks/Week Comments Yes 0 (1 standard drink = 0.6 oz pur e alcohol) SOCIAL Sex and Gender Information Value Date Recorded Sex Assigned at Not on file Legal Sex Male 5:10 PM CDT Gender Identity Not on file Sexual Orientation Not on file documented as of this encounter Progress Notes * Zscanned, Documents - 12/12/2018 12:00 AM CDT ANTHONY PEGUERO MD: ACCT: [id number] ADMIT/SERVICE DATE: 12/12/18 DISCHARGE DATE: 12/12/18 : 1950 PT TYPE: DEP SDC SEX: M ORD SITE: [facility] REPORT OF PATHOLOGICAL EXAMINATION DATE OF SURGERY: 12/12/2018 SURGICAL PATH NO: [id number] DATE OBTAINED: 12/12/2018 DATE RETURNED: CHART DOCUMENT PATHOLOGICAL DIAGNOSIS: SOFT TISSUE, LEFT INGUINAL AREA, HERNIORRHAPHY: - MATURE ADIPOSE TISSUE CONSISTENT WITH LIPOMA OF CORD SPECIMEN: LIPOMA OF CORD LEFT GROIN. GROSS EXAMINATION: THE SPECIMEN IS RECEIVED IN FORMALIN LABELED WITH THE PATIENT'S NAME AND LIPOMA OF CORD LEFT GROIN. THE SPECIMEN CONSISTS OF AN OVOID FRAGMENT OF YELLOW, FATTY TISSUE MEASURING 2.5 X 1.7 X 1 CM. SECTIONING REVEALS DULL, YELLOW, FATTY TISSUE. TWO CROSS SECTIONS ARE SUBMITTED IN A SINGLE CASSETTE. TD/MKDesi 12/12/2018 12/12/2018 02:26 P MICROSCOPIC EXAMINATION: SECTIONS OF THE SPECIMEN REVEAL MATURE ADIPOSE TISSUE WITH SOME SCATTERED, BENIGN BLOOD VESSELS. NO MESOTHELIAL LINING IS PRESENT. ELECTRONICALLY SIGNED BY DIO COATES MD 12/13/2018 05:30 P DT: PH/HH:12/13/2018 DOC NO: [id number] documented in this encounter Plan of Treatment Not on file documented as of this encounter Visit Diagnoses Not on filedocumented in this encounter Care Teams Digital Advisor Relationship Specialty Start Date End Date Flip Hurley MD PCP - General INTERNAL MEDICINE 07/29/18 documented as of this encounter
--- OUTSIDE RECORDS SUMMARY | 2025-04-15 09:35 | XMS_ITS | Clinical Summary ---
Author Organization [facility] Address [address] [place] [address] Care Team Providers Care Paperhanger Contractor Name Role Phone Flip Hurley MD Primary Care Provider [phone] Allergies No known active allergies Medications cholecalciferol (PA VITAMIN D-3) 1000 units Tab tablet Take 1 tablet by mouth daily. Active [place]-3 Fatty Acids (FISH OIL DOUBLE STRENGTH) 1200 MG Cap Take 1 capsule by mouth 2 (two) times daily. Active polyethylene glycol powder Take 17 g by mouth daily. Dissolve powder in 240 mL water Active docusate sodium 100 MG capsule Take 100 mg by mouth 2 (two) times daily. Active melatonin 5 MG tablet Take 5 mg by mouth daily. Active acetaminophen CR (ARTHRITIS PAIN RELIEF) 650 MG Tab CR 8 hr tablet Activ e aspirin EC (ASPIRIN EC) 81 MG tablet Take 81 mg by mouth daily. Active AMLODIPINE 5 MG tabletIndications:E ssential hypertension TAKE 1 TABLET BY MOUTH EVERY DAY 90 tablet 1 Active LEVOTHYROXINE 50 MCG tabletIndications:A cquired hypothyroidism TAKE 1 AND 1/2 TABLETS BY MOUTH ONCE DAILY 135 tablet 1 Active SIMVASTATIN 10 MG tabletIndications:D yslipidemia TAKE 1 TABLET BY MOUTH EVERYDAY AT BEDTIME 90 tablet 1 Active OMEPRAZOLE 20 MG capsuleIndications: Gastroesophageal reflux disease with esophagitis TAKE 1 CAPSULE BY MOUTH EVERY DAY 90 capsule 1 Active Active Problems Problem Noted Date Diagnosed Date Elevated PSA, between 10 and less than 20 ng/ml 03/04/2020 Constipation 07/18/2018 Assessment & Plan (12/29/2018 4:53 PM CDT): Patient currently taking daily doses of polyethylene glycol as well as docusate for regularity of bowel movements. Relatively remote history of colonoscopy, with some change in bowel movements at this time. Will refer to gastroenterology for evaluation and probable repeat colonoscopy. Symptoms seem most consistent, however, with irritable bowel syndrome. 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 No change to present treatment. Dyslipidemia 10/06/2013 Assessment & Plan (12/29/2018 4:53 PM CDT): Excellent control of cholesterol on present dosing of simvastatin, without side effects or intolerances. Continue current treatment. Acquired hypothyroidism 10/06/2013 Assessment & Plan (12/29/2018 4:54 PM CDT): TSH in target range, continue current dosing of levothyroxine and recheck in 6 months. Pernicious anemia 10/06/2013 Assessment & Plan (12/29/2018 4:54 PM CDT): History of anemia. Check B12 level with next blood draw, as well as CBC. Other insomnia 08/30/2012 Assessment & Plan (12/29/2018 4:56 PM CDT): Patient reports he received correspondence from his insurance company regarding coverage for doxepin. We discussed risk for future dementia with anticholinergic effects of this medication. He reports he does not take it every night and would be willing to try going without it. I encouraged him to do so and consider use of [id number] medications including melatonin, or antihistamine based products including Tylenol PM, Advil PM, and ZzzQuil. If insomnia remains a concern despite trials of these, could consider other sleep medications including Ambien and its related products.The patient indicates understanding of these issues and agrees with the plan. Recurrent major depressive disorder 08/30/2012 Assessment & Plan (12/29/2018 4:57 PM CDT): Stable, on no medications at this time. Continue to monitor. Acid reflux disease 07/27/2012 Assessment & Plan (12/29/2018 4:51 PM CDT): Well-controlled, without any breakthrough symptoms on current dosing of rabeprazole. Check vitamin B12 and folic acid levels with next blood draw, in 6 months. Resolved Problems Problem Noted Date Diagnosed Date Resolved Date Routine health maintenance 12/29/2018 0 03/04/2020 Assessment & Plan (12/29/2018 4:57 PM CDT): Patient to complete hepatitis B and hepatitis A series today. Right shoulder pain 07/18/2018 06/29/20 19 Incisional hernia 11/03/2017 12/29/2018 Hernia of anterior abdominal wall 01/13/2017 12/29/2018 Inguinal hernia, bilateral 01/13/2017 0 12/29/2018 Immunizations Immunization Administration Dates Next Due Flucelvax 2 YRS+ (Multi-Dose Vial) 07/20/2019 Fluzone High Dose - >Age 65 (Prefilled Syringe) 05/23/2020 Hepatitis A (Generic) 06/22/2018 Hepatitis A (Havrix 1440 El.U) 12/29/2018 Hepatitis B (Generic: Adult) 06/22/2018 Hepatitis B(Engerix B Adult) 08/02/2018 Hepatitis B(Engerix B Peds) 12/29/2018 Influenza (Generic) 07/10/2016,08/04/2012 Pneumococcal (Pneumovax 23) 09/03/2020 Pneumococcal (Prevnar 13) 07/19/2017 Shingrix 05/23/2020,12/06/2019,11/08/2019 Tdap (Generic) 06/22/2018 Family History Medical History Relation Comments Heart Disease Father Heart Attack Maternal Grandfather Relation Status Comments Father Maternal Grandfather Social History Tobacco Use Types Packs/Day Years Used Date Smoking Tobacco: Never Smokeless Tobacco: Never Alcohol Use Standard Drinks/Week Comments Yes 0 (1 standard drink = 0.6 oz pur e alcohol) SOCIAL Sex and Gender Information Value Date Recorded Sex Assigned at Not on file Legal Sex Male 5:10 PM CDT Gender Identity Not on file Sexual Orientation Not on file Last Filed Vital Signs Vital Sign Reading Time Taken Comments Blood Pressure 130/82 09/03/2020 8:07 AM NEGATIVE STRIPPER Pulse 94 09/03/2020 8:07 AM NEGATIVE STRIPPER Temperature 36.7 C (98.1 F) 09/03/2020 8:07 AM NEGATIVE STRIPPER Respiratory Rate 16 09/03/2020 8:07 AM NEGATIVE STRIPPER Oxygen Saturation 97% 09/03/2020 8:07 AM NEGATIVE STRIPPER Inhaled Oxygen Concentration - - Weight 85.9 kg (189 lb 6.4 oz) 09/03/2020 8:07 A M NEGATIVE STRIPPER Height 177.8 cm (5' 10) 09/03/2020 8:07 AM NEGATIVE STRIPPER Body Mass Index 27.18 09/03/2020 8:07 AM NEGATIVE STRIPPER Plan of Treatment Health Maintenance Due Date Last Done Comments Hepatitis C 1968 Annual Medicare Wellness Visit 01/05/2016 COVID-19 Vaccine ( - 2023-2 5 season) 2024 RSV Immunization or 60+ Years (1 - 1-dose 75+ series) 2026 DTaP, Tdap and Td Vaccines ( 2 - Td or Tdap) 06/22/2028 06/22/2018 Colorectal Cancer Screening Colonoscopy (10 Years) 09/15/2029 09/15/2019 Zoster Vaccines Completed 05/23/2020, 12/06/2019, 11/08/2019 Pneumococcal Vaccine: 50+ Years Completed 09/03/2020, 07/19/2017 Meningococcal B Vaccine Aged Out No l onger eligible based on patient's age to complete this topic Meningococcal Vaccine Aged Out No vivienne jah eligible based on patient's age to complete this topic RSV Immunizations Under 20 Months Aged Out No longer eligible b ased on patient's age to complete this topic Insurance MEDICARE [facility] INSURANCE Advance Directives Documents on File Type Date Recorded 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 Advance Directives and Living Will 12/19/2018 12:00 AM LIVING WILL Advance Directives and Living Will 12/19/2018 12:00 AM POWER OF PEST MANAGEMENT SUPERVISOR FO R HEALTH CARE Advance Directives and Living Will 12/12/2018 12:00 AM LIVING WILL Advance Directives and Living Will 12/12/2018 12:00 AM POWER OF PEST MANAGEMENT SUPERVISOR FO R HEALTH CARE Advance Directives and Living Will 12/07/2018 12:00 AM LIVING WILL Advance Directives and Living Will 12/07/2018 12:00 AM POWER OF PEST MANAGEMENT SUPERVISOR FO R HEALTH CARE Advance Directives and Living Will 07/14/2018 12:00 AM LIVING WILL Advance Directives and Living Will 07/14/2018 12:00 AM POWER OF PEST MANAGEMENT SUPERVISOR FO R HEALTH CARE Advance Directives and Living Will 07/14/2018 12:00 AM LIVING WILL Advance Directives and Living Will 07/14/2018 12:00 AM POWER OF PEST MANAGEMENT SUPERVISOR FO R HEALTH CARE Advance Directives and Living Will 01/17/2018 12:00 AM LIVING WILL Advance Directives and Living Will 01/17/2018 12:00 AM POWER OF PEST MANAGEMENT SUPERVISOR FO R HEALTH CARE Advance Directives and Living Will 01/17/2018 12:00 AM LIVING WILL Advance Directives and Living Will 01/17/2018 12:00 AM POWER OF PEST MANAGEMENT SUPERVISOR FO R HEALTH CARE Advance Directives and Living Will 01/12/2018 12:00 AM LIVING WILL Advance Directives and Living Will 01/12/2018 12:00 AM POWER OF PEST MANAGEMENT SUPERVISOR FO R HEALTH CARE Advance Directives and Living Will 01/12/2018 12:00 AM LIVING WILL Advance Directives and Living Will 01/12/2018 12:00 AM POWER OF PEST MANAGEMENT SUPERVISOR FO R HEALTH CARE Advance Directives and Living Will 10/28/2017 12:00 AM LIVING WILL Advance Directives and Living Will 10/28/2017 12:00 AM POWER OF PEST MANAGEMENT SUPERVISOR FO R HEALTH CARE Advance Directives and Living Will 10/28/2017 12:00 AM LIVING WILL Advance Directives and Living Will 10/28/2017 12:00 AM POWER OF PEST MANAGEMENT SUPERVISOR FO R HEALTH CARE Advance Directives and Living Will 10/25/2017 12:00 AM POWER OF PEST MANAGEMENT SUPERVISOR FO R HEALTH CARE Advance Directives and Living Will 10/25/2017 12:00 AM LIVING WILL Advance Directives and Living Will 10/25/2017 12:00 AM LIVING WILL Advance Directives and Living Will 10/25/2017 12:00 AM POWER OF PEST MANAGEMENT SUPERVISOR FO R HEALTH CARE Care Teams Paperhanger Contractor Relationship Specialty Start Date End Date Flip Hurley MD PCP - General INTERNAL MEDICINE 07/29/18
--- OUTSIDE RECORDS SUMMARY | 2025-04-15 09:35 | XMS_ITS | Encounter Summary ---
Author Organization [facility] Address [address] [place] [address] Care Team Providers Care Gravity Prospecting Observer Name Role Phone Flip Hurley MD Primary Care Provider [phone] Encounter Details Date Type Department Care Team (Late st Contact Info) Description 11/01/2018 Game Craft Message Enc [facility] DEPARTMENT [address] [place] [id number] [facility], [facility] Provider Traveler's diarrhea Social History Tobacco Use Types Packs/Day Years [...] on filedocumented in this encounter Care Teams Gravity Prospecting Observer Relationship Specialty Start Date End Date Flip Hurley MD PCP - General INTERNAL MEDICINE 07/29/18 documented as of this encounter
== END 2025-04-15 09:31 | disposition home or self-care (01) ==
PROVIDERS: PCP Physician Assistant Medical; Visit Provider Urology
DX: C61 Malignant neoplasm of prostate (principal)
CPT/HCPCS: 72197; A9577

== ENCOUNTER 2025-06-28 10:33 | Outpatient (CLI) | payer MEDICARE, SELFPAY ==
[2025-06-28 12:13] LABS: Prostate Specific Antigen 0.4 ng/mL (< OR = 4.0)
== END 2025-06-28 10:34 | disposition home or self-care (01) ==
PROVIDERS: PCP Physician Assistant Medical; Visit Provider Nurse Practitioner
DX: C61 Malignant neoplasm of prostate (principal)
CPT/HCPCS: 36415; 84153